=== PATIENT | male | born 1950 | race Caucasian/White ===

== ENCOUNTER 2017-09-19 10:04 | Day surgery (SDC) | payer MEDICARE, OTHER ==
[2017-09-19 11:16] LABS: ADD MAN DIFF? NO
[2017-09-19 11:22] LABS: BASOPHIL # 0.1 10^3/ul (0.0-0.1); BASOPHILS % 0.8 % (0.0-2.0); EOSINOPHILS # 0.2 10^3/ul (0.0-0.5); EOSINOPHILS % 2.9 % (0.0-7.0); HEMATOCRIT 42.1 % (42.0-52.0); HEMOGLOBIN 14.1 g/dl (14.0-18.0); LYMPHOCYTES # 2.2 10^3/ul (0.8-2.9); LYMPHOCYTES % 35.8 % (15.0-51.0); MEAN CORPUSCULAR HEMOGLOBIN 29.4 pg (29.0-33.0); MEAN CORPUSCULAR HGB CONC 33.5 g/dl (32.0-37.0); MEAN CORPUSCULAR VOLUME 87.7 fl (82.0-101.0); MEAN PLATELET VOLUME 10.8 fl (7.4-10.4); MONOCYTE # 0.4 10^3/ul (0.3-0.9); MONOCYTES % 5.8 % (0.0-11.0); NEUTROPHIL # 3.4 10^3/ul (1.6-7.5); NEUTROPHILS % 54.5 % (39.0-77.0); PLATELET COUNT 226 10^3/UL (140-415); RED CELL DISTRIBUTION WIDTH 13.3 % (11.5-14.5)
[2017-09-19 11:22] LABS: WHITE BLOOD COUNT 6.3 10^3/ul (4.8-10.8)
[2017-09-19 11:38] LABS: ANION GAP 12 (8-16); CARBON DIOXIDE 25 mmol/L (21-31); CHLORIDE 113 mmol/L (97-110); GLUCOSE 99 mg/dl (70-220)
[2017-09-19 11:45] LABS: INR 3.17; PT RATIO 2.6
[2017-09-19 11:50] LABS: BLOOD UREA NITROGEN 17 mg/dl (7-20); CALCIUM 8.9 mg/dl (8.4-10.2); CREATININE 0.91 mg/dl (0.61-1.24); POTASSIUM 4.2 mmol/L (3.5-5.1); SODIUM 146 mmol/L (135-144)
[2017-09-19 12:00] LABS: PARTIAL THROMBOPLASTIN TIME 49.7 Sec (25.0-35.0); PROTIME 33.5 Sec (11.9-14.9)
[2017-09-19] MEDS ORDERED: AMIODARONE 150MG/D5W BOLUS 100 ML IV (13:00)
== END 2017-09-19 15:20 | disposition home or self-care (01) ==
LOC: CCL 10:04
DX: I48.91 Unspecified atrial fibrillation (principal); E78.5 Hyperlipidemia, unspecified; I25.10 Atherosclerotic heart disease of native coronary artery without angina pectoris; E66.01 Morbid (severe) obesity due to excess calories; Z68.37 Body mass index [BMI] 37.0-37.9, adult
CPT/HCPCS: 71045; 80048; 85025; 85610; 85730; 92960; 93005; 93312

== ENCOUNTER 2018-01-13 11:13 | Inpatient (IN) | payer MEDICARE ==
[2018-01-13] MEDS: DILTIAZEM 25 MG INJ IV (11:40)
[2018-01-13 11:47] LABS: ADD MAN DIFF? NO
[2018-01-13 11:50] LABS: BASOPHIL # 0.1 10^3/ul (0.0-0.1); BASOPHILS % 0.7 % (0.0-2.0); EOSINOPHILS # 0.3 10^3/ul (0.0-0.5); EOSINOPHILS % 3.6 % (0.0-7.0); HEMATOCRIT 43.8 % (42.0-52.0); HEMOGLOBIN 14.5 g/dl (14.0-18.0); LYMPHOCYTES % 37.5 % (15.0-51.0); MEAN CORPUSCULAR HEMOGLOBIN 29.1 pg (29.0-33.0); MEAN CORPUSCULAR HGB CONC 33.1 g/dl (32.0-37.0); MEAN PLATELET VOLUME 11.1 fl (7.4-10.4); MONOCYTE # 0.3 10^3/ul (0.3-0.9); MONOCYTES % 4.2 % (0.0-11.0); NEUTROPHIL # 4.3 10^3/ul (1.6-7.5); NEUTROPHILS % 53.6 % (39.0-77.0); PLATELET COUNT 241 10^3/UL (140-415); RED BLOOD COUNT 4.98 10^6/ul (4.70-6.10); RED CELL DISTRIBUTION WIDTH 13.3 % (11.5-14.5)
[2018-01-13 12:00] LABS: INR 3.17; PARTIAL THROMBOPLASTIN TIME 46.1 Sec (25.0-35.0); PROTIME 33.5 Sec (11.9-14.9); PT RATIO 2.6
[2018-01-13 12:38] LABS: ANION GAP 14 (8-16); BLOOD UREA NITROGEN 20 mg/dl (7-20); CARBON DIOXIDE 20 mmol/L (21-31); CHLORIDE 112 mmol/L (97-110); CREATININE 1.01 mg/dl (0.61-1.24); GLUCOSE 130 mg/dl (70-220); MAGNESIUM 2.1 mg/dl (1.7-2.5); POTASSIUM 4.1 mmol/L (3.5-5.1); SODIUM 142 mmol/L (135-144)
[2018-01-13 12:50] LABS: B-TYPE NATRIURETIC PEPTIDE 741 PG/ML (0-125); TROPONIN-I < 0.012 ng/ml (0.000-0.120)
[2018-01-13] MEDS ORDERED: SOD CHLORIDE 0.9% 1,000 ML IV (13:33)
[2018-01-13] MEDS ORDERED: MAGNESIUM HYDROXIDE 30ML CUP PO (14:00)
[2018-01-13] MEDS ORDERED: NACL 0.9% 3 ML SYG IV (14:00)
[2018-01-13] MEDS ORDERED: ACETAMINOPHEN 325 MG TAB PO (14:00)
[2018-01-13] MEDS ORDERED: NITROGLYCERIN (SL) 0.4 MG TAB SL (14:00)
[2018-01-13] MEDS ORDERED: BISACODYL (EC) 5 MG TAB PO (14:00)
[2018-01-13] MEDS ORDERED: DOCUSATE SODIUM 100 MG CAP PO (14:00)
[2018-01-13] MEDS ORDERED: LABETALOL HCL 20MG INJ IV (14:00)
[2018-01-13] MEDS ORDERED: HYDROCODONE/APAP (5/325) TAB PO (14:00)
[2018-01-13] MEDS: SOD CHLORIDE 0.9% 500 ML IV (14:23)
[2018-01-13] MEDS: DIGOXIN 500 MCG INJ IV (14:28)
[2018-01-13] MEDS ORDERED: DILTIAZEM 25 MG INJ IV (14:30)
[2018-01-13] MEDS: AMIODARONE 150MG/D5W BOLUS 100 ML IV (14:33)
[2018-01-13] MEDS: AMIODARONE 900 MG in DEXTROSE 5% 482 ML IV ×2 (14:56→21:02)
[2018-01-13] MEDS: SOD CHLORIDE 0.9% 1,000 ML IV (14:57)
[2018-01-13 19:25] LABS: TROPONIN-I < 0.012 ng/ml (0.000-0.120)
[2018-01-13] MEDS: ATORVASTATIN 20 MG TAB PO (21:03)
[2018-01-13] MEDS: DILTIAZEM 30 MG TAB PO (21:11)
[2018-01-13] MEDS: ALPRAZOLAM 0.5 MG TAB PO (22:15)
[2018-01-14 01:26] LABS: TROPONIN-I < 0.012 ng/ml (0.000-0.120)
[2018-01-14] MEDS: DILTIAZEM 30 MG TAB PO ×3 (06:00→21:02)
[2018-01-14] MEDS: AMIODARONE 900 MG in DEXTROSE 5% 482 ML IV (06:19)
[2018-01-14 06:46] LABS: ADD MAN DIFF? NO
[2018-01-14 06:53] LABS: WHITE BLOOD COUNT 7.5 10^3/ul (4.8-10.8)
[2018-01-14 06:54] LABS: BASOPHILS % 0.5 % (0.0-2.0); EOSINOPHILS # 0.3 10^3/ul (0.0-0.5); EOSINOPHILS % 4.1 % (0.0-7.0); HEMATOCRIT 42.4 % (42.0-52.0); HEMOGLOBIN 13.7 g/dl (14.0-18.0); LYMPHOCYTES # 3.1 10^3/ul (0.8-2.9); LYMPHOCYTES % 40.6 % (15.0-51.0); MEAN CORPUSCULAR HEMOGLOBIN 28.6 pg (29.0-33.0); MEAN CORPUSCULAR HGB CONC 32.3 g/dl (32.0-37.0); MEAN CORPUSCULAR VOLUME 88.5 fl (82.0-101.0); MONOCYTE # 0.5 10^3/ul (0.3-0.9); MONOCYTES % 6.1 % (0.0-11.0); NEUTROPHIL # 3.6 10^3/ul (1.6-7.5); NEUTROPHILS % 48.4 % (39.0-77.0); PLATELET COUNT 224 10^3/UL (140-415); RED BLOOD COUNT 4.79 10^6/ul (4.70-6.10); RED CELL DISTRIBUTION WIDTH 13.6 % (11.5-14.5)
[2018-01-14 07:37] LABS: INR 2.95; PROTIME 31.6 Sec (11.9-14.9); PT RATIO 2.5
[2018-01-14 07:47] LABS: ALANINE AMINOTRANSFERASE 24 IU/L (13-69); ALBUMIN 3.4 g/dl (3.3-4.9); ALKALINE PHOSPHATASE 99 IU/L (42-121); ANION GAP 12 (8-16); ASPARTATE AMINO TRANSFERASE 29 IU/L (15-46); BILIRUBIN,INDIRECT 0.5 mg/dl (0-1.1); BILIRUBIN,TOTAL 0.5 mg/dl (0.2-1.3); BLOOD UREA NITROGEN 16 mg/dl (7-20); CALCIUM 8.9 mg/dl (8.4-10.2); CARBON DIOXIDE 27 mmol/L (21-31); CHLORIDE 106 mmol/L (97-110); CHOL/HDL RATIO 4.3 RATIO; CHOLESTEROL 144 mg/dl (100-200); CREATININE 0.94 mg/dl (0.61-1.24); GLUCOSE 98 mg/dl (70-220); HDL CHOLESTEROL 33 mg/dl (30-78); LDL CHOLESTEROL,CALCULATED 81 mg/dl; MAGNESIUM 1.9 mg/dl (1.7-2.5); POTASSIUM 4.4 mmol/L (3.5-5.1); SODIUM 141 mmol/L (135-144); TRIGLYCERIDES 149 mg/dl (0-149)
[2018-01-14] MEDS: ASPIRIN (EC) 81 MG TAB PO (08:43)
[2018-01-14] MEDS: PAROXETINE 20 MG TAB PO (08:43)
[2018-01-14] MEDS ORDERED: WARFARIN 5 MG TAB PO (09:00)
[2018-01-14 09:29] LABS: HEMOGLOBIN A1C 5.6 % (0-5.9)
[2018-01-14] MEDS ORDERED: LIDOCAINE 2% (SDV) 5 ML INJ (12:31)
[2018-01-14] MEDS ORDERED: PROPOFOL 40 ML (12:32)
[2018-01-14] MEDS: WARFARIN 5 MG TAB PO (17:24)
[2018-01-14] MEDS: ATORVASTATIN 20 MG TAB PO (21:02)
[2018-01-14] MEDS: ALPRAZOLAM 0.5 MG TAB PO (21:03)
[2018-01-15] MEDS: DILTIAZEM 30 MG TAB PO (06:00)
[2018-01-15 07:18] LABS: PROTIME 27.7 Sec (11.9-14.9); PT RATIO 2.2
[2018-01-15] MEDS: ASPIRIN (EC) 81 MG TAB PO (08:13)
[2018-01-15] MEDS: ALPRAZOLAM 0.5 MG TAB PO (08:13)
[2018-01-15] MEDS: PAROXETINE 20 MG TAB PO (08:13)
== END 2018-01-15 13:00 | disposition home or self-care (01) | DRG 310 ==
LOC: E/R 11:13 → TEL 13:35
PROC: 5A2204Z Restoration of Cardiac Rhythm, Single (ICD-10-PCS; principal; 2018-01-14 12:15)
DX: I48.91 Unspecified atrial fibrillation (principal); E78.5 Hyperlipidemia, unspecified; I42.9 Cardiomyopathy, unspecified; F32.9 Major depressive disorder, single episode, unspecified; F41.9 Anxiety disorder, unspecified; Z87.891 Personal history of nicotine dependence; Z79.01 Long term (current) use of anticoagulants; I25.10 Atherosclerotic heart disease of native coronary artery without angina pectoris; Z95.5 Presence of coronary angioplasty implant and graft; Z95.810 Presence of automatic (implantable) cardiac defibrillator; I95.9 Hypotension, unspecified; R79.1 Abnormal coagulation profile; I25.2 Old myocardial infarction
CPT/HCPCS: 36415; 71045; 80048; 80053; 80061; 83036; 83735; 83880; 84443; 84484; 85025; 85610; 85730; 93005; 93306; 93312; 93320; 93325; 96374; 99285-25; G0378

== ENCOUNTER 2018-06-13 12:11 | Inpatient (IN) | payer MEDICARE ==
[2018-06-13 13:29] LABS: ADD MAN DIFF? NO
[2018-06-13] MEDS: SOD CHLORIDE 0.9% 1,000 ML IV (13:30)
[2018-06-13 13:34] LABS: WHITE BLOOD COUNT 8.2 10^3/ul (4.8-10.8)
[2018-06-13 13:34] LABS: BASOPHIL # 0.1 10^3/ul (0.0-0.1); BASOPHILS % 0.7 % (0.0-2.0); EOSINOPHILS # 0.2 10^3/ul (0.0-0.5); EOSINOPHILS % 2.8 % (0.0-7.0); HEMATOCRIT 38.4 % (42.0-52.0); HEMOGLOBIN 12.5 g/dl (14.0-18.0); LYMPHOCYTES # 2.3 10^3/ul (0.8-2.9); LYMPHOCYTES % 28.6 % (15.0-51.0); MEAN CORPUSCULAR HGB CONC 32.6 g/dl (32.0-37.0); MEAN CORPUSCULAR VOLUME 89.1 fl (82.0-101.0); MEAN PLATELET VOLUME 11.2 fl (7.4-10.4); MONOCYTE # 0.5 10^3/ul (0.3-0.9); MONOCYTES % 5.5 % (0.0-11.0); NEUTROPHIL # 5.1 10^3/ul (1.6-7.5); PLATELET COUNT 240 10^3/UL (140-415); RED BLOOD COUNT 4.31 10^6/ul (4.70-6.10); RED CELL DISTRIBUTION WIDTH 13.8 % (11.5-14.5)
[2018-06-13 13:44] LABS: ADD UMIC YES; UR CLARITY BLOODY (CLEAR); UR COLOR BROWN (YELLOW); UR TOTAL PROTEIN (Dip) 4+ mg/dl (NEGATIVE); URINE SPECIFIC GRAVITY (Dip) >1.030 (1.003-1.030)
[2018-06-13 13:45] LABS: UR BILIRUBIN (Dip) 3+ mg/dL (NEGATIVE); UR BLOOD (Dip) 3+ mg/dL (NEGATIVE); UR GLUCOSE (Dip) NEGATIVE (NEGATIVE); UR KETONES (Dip) LARGE (3+) mg/dL (NEGATIVE); UR NITRITE (Dip) POSITIVE (NEGATIVE)
[2018-06-13 13:46] LABS: UR ASCORBIC ACID NEGATIVE (NEGATIVE); UR UROBILINOGEN (Dip) 2+ mg/dL (NEGATIVE)
[2018-06-13 13:50] LABS: UR LEUKOCYTE ESTERASE (Dip) 1+ Leu/ul (NEGATIVE); URINE RBCS >200 /HPF (0)
[2018-06-13 13:51] LABS: UR BACTERIA MODERATE /HPF (NONE SEEN); UR SQUAMOUS EPITHELIAL CELL RARE /HPF (FEW)
[2018-06-13 13:52] LABS: ALANINE AMINOTRANSFERASE 22 IU/L (13-69); ALBUMIN 4.1 g/dl (3.3-4.9); ALBUMIN/GLOBULIN RATIO 1.32; ALKALINE PHOSPHATASE 105 IU/L (42-121); ANION GAP 4 (5-13); ASPARTATE AMINO TRANSFERASE 21 IU/L (15-46); BILIRUBIN,INDIRECT 0.3 mg/dl (0-1.1); BILIRUBIN,TOTAL 0.3 mg/dl (0.2-1.3); BLOOD UREA NITROGEN 21 mg/dl (7-20); CALCIUM 9.2 mg/dl (8.4-10.2); CARBON DIOXIDE 27 mmol/L (21-31); CHLORIDE 112 mmol/L (97-110); CREATININE 0.94 mg/dl (0.61-1.24); Estimated GFR > 60 mL/min (>60); GLUCOSE 111 mg/dl (70-220); POTASSIUM 4.2 mmol/L (3.5-5.1); SODIUM 143 mmol/L (135-144); TOTAL PROTEIN 7.2 g/dl (6.1-8.1)
[2018-06-13 14:22] LABS: PROSTATE SPECIFIC ANTIGEN 0.9 ng/ml (0.0-4.0)
[2018-06-13] MEDS ORDERED: ONDANSETRON 4 MG INJ IV (17:30)
[2018-06-13] MEDS ORDERED: ACETAMINOPHEN 325 MG TAB PO (17:30)
[2018-06-13] MEDS ORDERED: ALPRAZOLAM 0.5 MG TAB PO (18:30)
[2018-06-13] MEDS: NACL 0.9% 3 ML SYG IV (20:00)
[2018-06-13 20:04] LABS: INR 1.86; PROTIME 21.5 Sec (11.9-14.9); PT RATIO 1.7
[2018-06-13] MEDS: ATORVASTATIN 20 MG TAB PO (20:57)
[2018-06-13] MEDS: PAROXETINE 20 MG TAB PO (20:58)
[2018-06-13] MEDS: ALPRAZOLAM 0.25 MG TAB PO (21:06)
[2018-06-13] MEDS: HYDROCODONE/APAP (5/325) TAB PO (22:09)
[2018-06-14 06:26] LABS: ADD MAN DIFF? NO
[2018-06-14 06:32] LABS: BASOPHIL # 0.1 10^3/ul (0.0-0.1); BASOPHILS % 0.6 % (0.0-2.0); EOSINOPHILS # 0.2 10^3/ul (0.0-0.5); EOSINOPHILS % 2.7 % (0.0-7.0); HEMATOCRIT 33.3 % (42.0-52.0); HEMOGLOBIN 10.8 g/dl (14.0-18.0); LYMPHOCYTES # 2.5 10^3/ul (0.8-2.9); LYMPHOCYTES % 32.6 % (15.0-51.0); MEAN CORPUSCULAR HEMOGLOBIN 29.6 pg (29.0-33.0); MEAN CORPUSCULAR HGB CONC 32.4 g/dl (32.0-37.0); MEAN CORPUSCULAR VOLUME 91.2 fl (82.0-101.0); MEAN PLATELET VOLUME 11.3 fl (7.4-10.4); MONOCYTE # 0.5 10^3/ul (0.3-0.9); MONOCYTES % 6.7 % (0.0-11.0); NEUTROPHIL # 4.4 10^3/ul (1.6-7.5); NEUTROPHILS % 57.1 % (39.0-77.0); PLATELET COUNT 163 10^3/UL (140-415); RED BLOOD COUNT 3.65 10^6/ul (4.70-6.10); RED CELL DISTRIBUTION WIDTH 13.3 % (11.5-14.5)
[2018-06-14 06:32] LABS: WHITE BLOOD COUNT 7.8 10^3/ul (4.8-10.8)
[2018-06-14 06:50] LABS: ALANINE AMINOTRANSFERASE 23 IU/L (13-69); ALBUMIN 3.5 g/dl (3.3-4.9); ALBUMIN/GLOBULIN RATIO 1.25; ALKALINE PHOSPHATASE 80 IU/L (42-121); ANION GAP 1 (5-13); ASPARTATE AMINO TRANSFERASE 23 IU/L (15-46); BILIRUBIN,INDIRECT 0.5 mg/dl (0-1.1); BILIRUBIN,TOTAL 0.5 mg/dl (0.2-1.3); BLOOD UREA NITROGEN 20 mg/dl (7-20); CALCIUM 8.6 mg/dl (8.4-10.2); CARBON DIOXIDE 28 mmol/L (21-31); CHLORIDE 112 mmol/L (97-110); CREATININE 0.95 mg/dl (0.61-1.24); Estimated GFR > 60 mL/min (>60); GLUCOSE 86 mg/dl (70-220); SODIUM 141 mmol/L (135-144); TOTAL PROTEIN 6.3 g/dl (6.1-8.1)
[2018-06-14 06:50] LABS: HEMOGLOBIN A1C 5.4 % (0-5.9)
[2018-06-14] MEDS: ALPRAZOLAM 0.25 MG TAB PO ×2 (08:58→20:17)
[2018-06-14] MEDS: PAROXETINE 20 MG TAB PO (08:58)
[2018-06-14 12:57] LABS: PROSTATE SPECIFIC ANTIGEN 1.2 ng/ml (0.0-4.0)
[2018-06-14] MEDS ORDERED: AL HYDROX/MG HYDROX/SIMETH 30 ML CUP PO ×2 (16:30)
[2018-06-14 18:54] LABS: TROPONIN-I < 0.012 ng/ml (0.000-0.120)
[2018-06-14] MEDS: ATORVASTATIN 20 MG TAB PO (20:17)
[2018-06-15 01:22] LABS: TROPONIN-I < 0.012 ng/ml (0.000-0.120)
[2018-06-15] MEDS: HYDROCODONE/APAP (5/325) TAB PO (05:40)
[2018-06-15 06:34] LABS: INR 1.39; PROTIME 17.2 Sec (11.9-14.9); PT RATIO 1.3
[2018-06-15 06:35] LABS: PARTIAL THROMBOPLASTIN TIME 34.9 Sec (23.0-35.0)
[2018-06-15 06:38] LABS: CHOLESTEROL 145 mg/dl (100-200)
[2018-06-15 06:38] LABS: CHOL/HDL RATIO 3.9 RATIO; LDL CHOLESTEROL,CALCULATED 91 mg/dl; TRIGLYCERIDES 85 mg/dl (0-149)
[2018-06-15 07:03] LABS: TROPONIN-I < 0.012 ng/ml (0.000-0.120)
[2018-06-15 07:12] LABS: HDL CHOLESTEROL 37 mg/dl (31-75)
[2018-06-15] MEDS: PAROXETINE 20 MG TAB PO (08:15)
[2018-06-15] MEDS: ATORVASTATIN 20 MG TAB PO (20:30)
[2018-06-15] MEDS: ALPRAZOLAM 0.25 MG TAB PO (20:30)
[2018-06-16] MEDS ORDERED: CEFAZOLIN 1 GM INJ (07:00)
[2018-06-16 07:05] LABS: PROTIME 15.3 Sec (11.9-14.9); PT RATIO 1.2
[2018-06-16 07:06] LABS: PARTIAL THROMBOPLASTIN TIME 30.4 Sec (23.0-35.0)
[2018-06-16] MEDS: PAROXETINE 20 MG TAB PO (08:08)
[2018-06-16] MEDS ORDERED: ONDANSETRON 4 MG INJ (17:40)
[2018-06-16] MEDS ORDERED: PROPOFOL 20 ML (17:40)
[2018-06-16] MEDS ORDERED: MIDAZOLAM 1 MG/ML 2 ML INJ (17:40)
[2018-06-16] MEDS ORDERED: METOCLOPRAMIDE 10 MG INJ (17:40)
[2018-06-16] MEDS ORDERED: ROCURONIUM 50 MG INJ (17:40)
[2018-06-16] MEDS ORDERED: FENTAnyl 50 MCG/ML VIAL (17:57)
[2018-06-16] MEDS ORDERED: MEPERIDINE 25 MG INJ IV (18:00)
[2018-06-16] MEDS ORDERED: DIPHENHYDRAMINE 50 MG INJ IV (18:00)
[2018-06-16] MEDS ORDERED: hydrALAzine 20 MG INJ IV (18:00)
[2018-06-16] MEDS ORDERED: ONDANSETRON 4 MG INJ IV (18:00)
[2018-06-16] MEDS ORDERED: HYDROmorphONE 1 MG/5 ML IV SYRINGE IV (18:00)
[2018-06-16] MEDS ORDERED: EPHEDrine 25 MG/5 ML SYG (18:10)
[2018-06-16] MEDS ORDERED: hydrALAzine 20 MG INJ (18:50)
[2018-06-16] MEDS ORDERED: ALBUTEROL 0.083% (NEB) 2.5 MG/3 ML AMP (19:06)
[2018-06-16] MEDS: IOHEXOL 300MG/ML 30 ML BTL (19:07)
[2018-06-16] MEDS: HYDROmorphONE 1 MG/5 ML IV SYRINGE IV ×2 (19:12→19:17)
[2018-06-16] MEDS: ALBUTEROL 0.083% (NEB) 2.5 MG/3 ML AMP HHN (19:25)
[2018-06-16] MEDS: ATORVASTATIN 20 MG TAB PO (20:58)
[2018-06-16] MEDS: ALPRAZOLAM 0.25 MG TAB PO (22:46)
[2018-06-17] MEDS: PAROXETINE 20 MG TAB PO (08:41)
[2018-06-17] MEDS: SOD CHLORIDE 0.9% 100 ML (09:38)
[2018-06-17] MEDS: IOHEXOL 300MG/ML 150 ML BTL (09:38)
[2018-06-17] MEDS: ALPRAZOLAM 0.25 MG TAB PO (20:37)
[2018-06-17] MEDS: ATORVASTATIN 20 MG TAB PO (20:37)
[2018-06-18] MEDS: PAROXETINE 20 MG TAB PO (08:37)
[2018-06-18] MEDS: ALPRAZOLAM 0.25 MG TAB PO (08:37)
[2018-06-18 12:43] LABS: ADD MAN DIFF? NO
[2018-06-18 13:00] LABS: WHITE BLOOD COUNT 7.2 10^3/ul (4.8-10.8)
[2018-06-18 13:00] LABS: BASOPHIL # 0.1 10^3/ul (0.0-0.1); BASOPHILS % 0.8 % (0.0-2.0); EOSINOPHILS # 0.3 10^3/ul (0.0-0.5); EOSINOPHILS % 3.8 % (0.0-7.0); HEMATOCRIT 32.6 % (42.0-52.0); HEMOGLOBIN 10.7 g/dl (14.0-18.0); LYMPHOCYTES # 2.1 10^3/ul (0.8-2.9); LYMPHOCYTES % 28.8 % (15.0-51.0); MEAN CORPUSCULAR HEMOGLOBIN 29.6 pg (29.0-33.0); MEAN CORPUSCULAR HGB CONC 32.8 g/dl (32.0-37.0); MEAN CORPUSCULAR VOLUME 90.1 fl (82.0-101.0); MEAN PLATELET VOLUME 10.5 fl (7.4-10.4); MONOCYTE # 0.5 10^3/ul (0.3-0.9); MONOCYTES % 6.3 % (0.0-11.0); NEUTROPHIL # 4.3 10^3/ul (1.6-7.5); NEUTROPHILS % 59.9 % (39.0-77.0); PLATELET COUNT 239 10^3/UL (140-415); RED BLOOD COUNT 3.62 10^6/ul (4.70-6.10); RED CELL DISTRIBUTION WIDTH 13.3 % (11.5-14.5)
== END 2018-06-18 13:00 | disposition home or self-care (01) | DRG 687 ==
LOC: E/R 12:11 → 2NE 17:04
PROVIDERS: Internal Medicine
PROC: 0TCB8ZZ Extirpation of Matter from Bladder, Via Natural or Artificial Opening Endoscopic (ICD-10-PCS; principal; 2018-06-16 17:42)
PROC: BT14YZZ Fluoroscopy of Kidneys, Ureters and Bladder using Other Contrast (ICD-10-PCS; 2018-06-16 17:42)
DX: C64.2 Malignant neoplasm of left kidney, except renal pelvis (principal); N13.30 Unspecified hydronephrosis; Z68.36 Body mass index [BMI] 36.0-36.9, adult; R31.0 Gross hematuria; Z85.51 Personal history of malignant neoplasm of bladder; F32.9 Major depressive disorder, single episode, unspecified; F41.9 Anxiety disorder, unspecified; F17.200 Nicotine dependence, unspecified, uncomplicated; I10 Essential (primary) hypertension; E78.5 Hyperlipidemia, unspecified; I25.10 Atherosclerotic heart disease of native coronary artery without angina pectoris; Z95.5 Presence of coronary angioplasty implant and graft; I48.0 Paroxysmal atrial fibrillation; E66.01 Morbid (severe) obesity due to excess calories
CPT/HCPCS: 71045; 74176; 74178; 74430; 80053; 80061; 81001; 83036; 84153; 84154; 84443; 84484; 85025; 85610; 85730; 87086; 88104; 93005; 93306; 94664; 96360; 99285-25

== ENCOUNTER 2018-09-26 11:05 | Inpatient (IN) | payer MEDICARE, MEDICAID ==
[2018-09-26] MEDS ORDERED: DILTIAZEM 25 MG INJ (11:35)
[2018-09-26] MEDS: DILTIAZEM 25 MG INJ IV ×4 (11:35→12:19)
[2018-09-26 11:41] LABS: ADD MAN DIFF? NO
[2018-09-26 11:43] LABS: WHITE BLOOD COUNT 7.5 10^3/ul (4.8-10.8)
[2018-09-26 11:43] LABS: BASOPHIL # 0.1 10^3/ul (0.0-0.1); BASOPHILS % 0.7 % (0.0-2.0); EOSINOPHILS # 0.3 10^3/ul (0.0-0.5); EOSINOPHILS % 3.6 % (0.0-7.0); HEMATOCRIT 43.9 % (42.0-52.0); HEMOGLOBIN 14.3 g/dl (14.0-18.0); LYMPHOCYTES # 2.8 10^3/ul (0.8-2.9); LYMPHOCYTES % 36.8 % (15.0-51.0); MEAN CORPUSCULAR HEMOGLOBIN 28.1 pg (29.0-33.0); MEAN CORPUSCULAR HGB CONC 32.6 g/dl (32.0-37.0); MEAN CORPUSCULAR VOLUME 86.2 fl (82.0-101.0); MEAN PLATELET VOLUME 10.6 fl (7.4-10.4); MONOCYTE # 0.4 10^3/ul (0.3-0.9); MONOCYTES % 4.7 % (0.0-11.0); NEUTROPHILS % 53.9 % (39.0-77.0); PLATELET COUNT 270 10^3/UL (140-415); RED BLOOD COUNT 5.09 10^6/ul (4.70-6.10); RED CELL DISTRIBUTION WIDTH 13.6 % (11.5-14.5)
[2018-09-26] MEDS: DILTIAZEM 30 MG TAB PO ×2 (11:55→23:17)
[2018-09-26 12:02] LABS: ALANINE AMINOTRANSFERASE 24 IU/L (13-69); ALBUMIN 3.9 g/dl (3.3-4.9); ALBUMIN/GLOBULIN RATIO 1.39; ALKALINE PHOSPHATASE 123 IU/L (42-121); ANION GAP 7 (5-13); ASPARTATE AMINO TRANSFERASE 22 IU/L (15-46); BILIRUBIN,INDIRECT 0.7 mg/dl (0-1.1); BILIRUBIN,TOTAL 0.7 mg/dl (0.2-1.3); BLOOD UREA NITROGEN 18 mg/dl (7-20); CALCIUM 8.9 mg/dl (8.4-10.2); CARBON DIOXIDE 24 mmol/L (21-31); CHLORIDE 110 mmol/L (97-110); CREATININE 1.08 mg/dl (0.61-1.24); Estimated GFR > 60 mL/min (>60); GLUCOSE 160 mg/dl (70-220); POTASSIUM 4.1 mmol/L (3.5-5.1); SODIUM 141 mmol/L (135-144); TOTAL PROTEIN 6.7 g/dl (6.1-8.1)
[2018-09-26 12:06] LABS: INR 1.55; PROTIME 18.7 Sec (11.9-14.9); PT RATIO 1.5
[2018-09-26 12:16] LABS: TROPONIN-I 0.178 ng/ml (0.000-0.120)
[2018-09-26] MEDS: SOD CHLORIDE 0.9% 500 ML IV (12:19)
[2018-09-26] MEDS: DIGOXIN 500 MCG INJ IV (12:20)
[2018-09-26] MEDS: ASPIRIN 325 MG TAB PO (12:29)
[2018-09-26] MEDS ORDERED: ACETAMINOPHEN 325 MG TAB PO ×2 (12:30→14:30)
[2018-09-26] MEDS ORDERED: ONDANSETRON 4 MG INJ IV ×2 (12:30→14:30)
[2018-09-26] MEDS ORDERED: DILTIAZEM 25 MG INJ IV (14:00)
[2018-09-26] MEDS ORDERED: NITROGLYCERIN (SL) 0.4 MG TAB SL (14:30)
[2018-09-26] MEDS ORDERED: NACL 0.9% 3 ML SYG IV (14:30)
[2018-09-26] MEDS ORDERED: morphine 2 MG INJ IV (14:30)
[2018-09-26 18:44] LABS: CREATINE KINASE 49 IU/L (23-200)
[2018-09-26 18:56] LABS: CK INDEX 3.6; CK-MB 1.76 ng/ml (0.0-2.4)
[2018-09-26 19:05] LABS: TROPONIN-I 0.171 ng/ml (0.000-0.120)
[2018-09-26] MEDS: PAROXETINE 20 MG TAB PO (23:17)
[2018-09-26] MEDS: WARFARIN 10 MG TAB PO (23:17)
[2018-09-26] MEDS: ATORVASTATIN 20 MG TAB PO (23:17)
[2018-09-26] MEDS: ENOXAPARIN 80 MG/0.8 ML SYG SC (23:22)
[2018-09-26] MEDS: ALPRAZOLAM 0.5 MG TAB PO (23:23)
[2018-09-26 23:57] LABS: CREATINE KINASE 51 IU/L (23-200)
[2018-09-27 00:07] LABS: CK INDEX 3.2; CK-MB 1.64 ng/ml (0.0-2.4)
[2018-09-27 00:08] LABS: TROPONIN-I 0.146 ng/ml (0.000-0.120)
[2018-09-27 05:33] LABS: ADD MAN DIFF? NO
[2018-09-27 05:35] LABS: BASOPHIL # 0.1 10^3/ul (0.0-0.1); BASOPHILS % 0.7 % (0.0-2.0); EOSINOPHILS # 0.3 10^3/ul (0.0-0.5); EOSINOPHILS % 4.3 % (0.0-7.0); HEMATOCRIT 42.7 % (42.0-52.0); HEMOGLOBIN 13.7 g/dl (14.0-18.0); LYMPHOCYTES # 3.1 10^3/ul (0.8-2.9); LYMPHOCYTES % 43.9 % (15.0-51.0); MEAN CORPUSCULAR HGB CONC 32.1 g/dl (32.0-37.0); MEAN CORPUSCULAR VOLUME 87.1 fl (82.0-101.0); MEAN PLATELET VOLUME 10.8 fl (7.4-10.4); MONOCYTE # 0.5 10^3/ul (0.3-0.9); MONOCYTES % 7.1 % (0.0-11.0); NEUTROPHIL # 3.1 10^3/ul (1.6-7.5); NEUTROPHILS % 43.7 % (39.0-77.0); PLATELET COUNT 218 10^3/UL (140-415); RED CELL DISTRIBUTION WIDTH 13.7 % (11.5-14.5)
[2018-09-27 05:53] LABS: HEMOGLOBIN A1C 5.4 % (0-5.9)
[2018-09-27 05:55] LABS: INR 1.56; PROTIME 18.8 Sec (11.9-14.9); PT RATIO 1.5
[2018-09-27] MEDS: DILTIAZEM 30 MG TAB PO ×4 (06:17→21:10)
[2018-09-27 06:40] LABS: ALANINE AMINOTRANSFERASE 24 IU/L (13-69); ALBUMIN 3.6 g/dl (3.3-4.9); ALBUMIN/GLOBULIN RATIO 1.38; ALKALINE PHOSPHATASE 111 IU/L (42-121); ANION GAP 5 (5-13); ASPARTATE AMINO TRANSFERASE 22 IU/L (15-46); BILIRUBIN,INDIRECT 0.7 mg/dl (0-1.1); BILIRUBIN,TOTAL 0.7 mg/dl (0.2-1.3); BLOOD UREA NITROGEN 19 mg/dl (7-20); CALCIUM 8.7 mg/dl (8.4-10.2); CARBON DIOXIDE 26 mmol/L (21-31); CHLORIDE 109 mmol/L (97-110); CHOL/HDL RATIO 5.1 RATIO; CHOLESTEROL 160 mg/dl (100-200); CREATININE 0.94 mg/dl (0.61-1.24); Estimated GFR > 60 mL/min (>60); GLUCOSE 101 mg/dl (70-220); HDL CHOLESTEROL 31 mg/dl (31-75); LDL CHOLESTEROL,CALCULATED 107 mg/dl; PHOSPHORUS 2.8 mg/dl (2.5-4.9); POTASSIUM 4.4 mmol/L (3.5-5.1); SODIUM 140 mmol/L (135-144); TOTAL PROTEIN 6.2 g/dl (6.1-8.1); TRIGLYCERIDES 112 mg/dl (0-149)
[2018-09-27] MEDS: ALPRAZOLAM 0.5 MG TAB PO ×2 (08:13→21:06)
[2018-09-27] MEDS: ASPIRIN (EC) 81 MG TAB PO (08:13)
[2018-09-27] MEDS: ENOXAPARIN 80 MG/0.8 ML SYG SC ×2 (08:13→20:58)
[2018-09-27 13:02] LABS: FREE T4 (FREE THYROXINE) 1.32 ng/dl (0.78-2.44)
[2018-09-27 13:03] LABS: FREE T3 3.79 pg/ml (2.77-5.27)
[2018-09-27] MEDS: DIGOXIN 500 MCG INJ IV ×2 (14:14→17:17)
[2018-09-27] MEDS: AMIODARONE 150MG/D5W BOLUS 100 ML IV (18:00)
[2018-09-27] MEDS: AMIODARONE 900 MG in DEXTROSE 5% 482 ML IV (18:13)
[2018-09-27] MEDS: ATORVASTATIN 20 MG TAB PO (20:56)
[2018-09-27] MEDS: PAROXETINE 20 MG TAB PO (20:56)
[2018-09-27] MEDS ORDERED: AMIODARONE 200 MG TAB PO (21:00)
[2018-09-27] MEDS: WARFARIN 5 MG TAB PO ×2 (21:05→21:11)
[2018-09-28] MEDS: DIGOXIN 500 MCG INJ IV ×2 (00:37→15:21)
[2018-09-28] MEDS: DILTIAZEM 30 MG TAB PO ×3 (06:00→20:39)
[2018-09-28 06:18] LABS: ADD MAN DIFF? NO
[2018-09-28 06:26] LABS: WHITE BLOOD COUNT 6.8 10^3/ul (4.8-10.8)
[2018-09-28 06:26] LABS: BASOPHIL # 0.1 10^3/ul (0.0-0.1); BASOPHILS % 0.9 % (0.0-2.0); EOSINOPHILS # 0.3 10^3/ul (0.0-0.5); EOSINOPHILS % 3.8 % (0.0-7.0); HEMOGLOBIN 14.1 g/dl (14.0-18.0); LYMPHOCYTES # 2.5 10^3/ul (0.8-2.9); MEAN CORPUSCULAR HEMOGLOBIN 28.4 pg (29.0-33.0); MEAN CORPUSCULAR HGB CONC 33.6 g/dl (32.0-37.0); MEAN CORPUSCULAR VOLUME 84.5 fl (82.0-101.0); MEAN PLATELET VOLUME 10.9 fl (7.4-10.4); MONOCYTE # 0.4 10^3/ul (0.3-0.9); MONOCYTES % 6.5 % (0.0-11.0); NEUTROPHIL # 3.5 10^3/ul (1.6-7.5); NEUTROPHILS % 51.7 % (39.0-77.0); PLATELET COUNT 192 10^3/UL (140-415); RED BLOOD COUNT 4.97 10^6/ul (4.70-6.10); RED CELL DISTRIBUTION WIDTH 13.3 % (11.5-14.5)
[2018-09-28 06:54] LABS: INR 1.79; PROTIME 20.9 Sec (11.9-14.9); PT RATIO 1.6
[2018-09-28 07:21] LABS: ANION GAP 7 (5-13); BLOOD UREA NITROGEN 16 mg/dl (7-20); CALCIUM 8.8 mg/dl (8.4-10.2); CARBON DIOXIDE 24 mmol/L (21-31); CHLORIDE 109 mmol/L (97-110); CREATININE 0.93 mg/dl (0.61-1.24); Estimated GFR > 60 mL/min (>60); GLUCOSE 95 mg/dl (70-220); SODIUM 140 mmol/L (135-144)
[2018-09-28] MEDS: ASPIRIN (EC) 81 MG TAB PO (08:35)
[2018-09-28] MEDS: ENOXAPARIN 80 MG/0.8 ML SYG SC ×2 (08:39→20:46)
[2018-09-28] MEDS: WARFARIN 5 MG TAB PO (16:50)
[2018-09-28] MEDS: ATORVASTATIN 20 MG TAB PO (20:38)
[2018-09-28] MEDS: AMIODARONE 200 MG TAB PO (20:38)
[2018-09-28] MEDS: PAROXETINE 20 MG TAB PO (20:42)
[2018-09-28] MEDS: ALPRAZOLAM 0.5 MG TAB PO (23:56)
[2018-09-29] MEDS: DILTIAZEM 30 MG TAB PO ×3 (06:21→21:37)
[2018-09-29 06:39] LABS: INR 1.86; PROTIME 21.5 Sec (11.9-14.9); PT RATIO 1.7
[2018-09-29] MEDS: AMIODARONE 200 MG TAB PO ×2 (08:56→21:36)
[2018-09-29] MEDS: ASPIRIN (EC) 81 MG TAB PO (08:57)
[2018-09-29] MEDS: ENOXAPARIN 80 MG/0.8 ML SYG SC ×2 (09:04→21:00)
[2018-09-29] MEDS: DIGOXIN 0.125 MG TAB PO (13:24)
[2018-09-29] MEDS: WARFARIN 7.5 MG TAB PO (15:34)
[2018-09-29] MEDS: PAROXETINE 20 MG TAB PO (21:36)
[2018-09-29] MEDS: ATORVASTATIN 20 MG TAB PO (21:36)
[2018-09-30 05:45] LABS: ADD MAN DIFF? NO
[2018-09-30] MEDS: DILTIAZEM 30 MG TAB PO ×3 (06:00→21:54)
[2018-09-30 06:01] LABS: BASOPHILS % 0.7 % (0.0-2.0); EOSINOPHILS # 0.2 10^3/ul (0.0-0.5); EOSINOPHILS % 3.3 % (0.0-7.0); HEMATOCRIT 40.8 % (42.0-52.0); HEMOGLOBIN 13.6 g/dl (14.0-18.0); LYMPHOCYTES # 2.6 10^3/ul (0.8-2.9); MEAN CORPUSCULAR HEMOGLOBIN 28.2 pg (29.0-33.0); MEAN CORPUSCULAR HGB CONC 33.3 g/dl (32.0-37.0); MEAN CORPUSCULAR VOLUME 84.5 fl (82.0-101.0); MEAN PLATELET VOLUME 10.6 fl (7.4-10.4); MONOCYTE # 0.5 10^3/ul (0.3-0.9); MONOCYTES % 8.3 % (0.0-11.0); NEUTROPHIL # 2.7 10^3/ul (1.6-7.5); NEUTROPHILS % 44.4 % (39.0-77.0); PLATELET COUNT 211 10^3/UL (140-415); RED BLOOD COUNT 4.83 10^6/ul (4.70-6.10); RED CELL DISTRIBUTION WIDTH 13.2 % (11.5-14.5)
[2018-09-30 06:01] LABS: WHITE BLOOD COUNT 6.1 10^3/ul (4.8-10.8)
[2018-09-30 06:15] LABS: PROTIME 22.8 Sec (11.9-14.9); PT RATIO 1.8
[2018-09-30 06:27] LABS: MAGNESIUM 2.1 mg/dl (1.7-2.5)
[2018-09-30 06:27] LABS: PHOSPHORUS 3.2 mg/dl (2.5-4.9)
[2018-09-30 06:34] LABS: ANION GAP 5 (5-13); BLOOD UREA NITROGEN 17 mg/dl (7-20); CARBON DIOXIDE 27 mmol/L (21-31); CHLORIDE 109 mmol/L (97-110); CREATININE 1.16 mg/dl (0.61-1.24); Estimated GFR > 60 mL/min (>60); GLUCOSE 104 mg/dl (70-220); POTASSIUM 4.4 mmol/L (3.5-5.1); SODIUM 141 mmol/L (135-144)
[2018-09-30] MEDS: ENOXAPARIN 80 MG/0.8 ML SYG SC ×2 (09:00→22:38)
[2018-09-30] MEDS: AMIODARONE 200 MG TAB PO ×2 (10:52→20:30)
[2018-09-30] MEDS: PROPOFOL 60 ML (12:37)
[2018-09-30] MEDS: LIDOCAINE 2% (SDV) 5 ML INJ (12:37)
[2018-09-30] MEDS ORDERED: ONDANSETRON 4 MG INJ IV (14:30)
[2018-09-30] MEDS ORDERED: DIPHENHYDRAMINE 50 MG INJ IV (14:30)
[2018-09-30] MEDS ORDERED: METOCLOPRAMIDE 10 MG INJ IV (14:30)
[2018-09-30] MEDS ORDERED: FENTAnyl 50 MCG/ML VIAL IV (14:30)
[2018-09-30] MEDS ORDERED: MEPERIDINE 25 MG INJ IV (14:30)
[2018-09-30] MEDS: DIGOXIN 0.125 MG TAB PO (16:22)
[2018-09-30] MEDS: ASPIRIN (EC) 81 MG TAB PO (16:22)
[2018-09-30] MEDS: ATORVASTATIN 20 MG TAB PO (20:30)
[2018-09-30] MEDS: PAROXETINE 20 MG TAB PO (20:30)
[2018-09-30] MEDS: ALPRAZOLAM 0.5 MG TAB PO (21:56)
[2018-10-01 05:33] LABS: ADD MAN DIFF? NO
[2018-10-01 05:42] LABS: BASOPHILS % 0.2 % (0.0-2.0); EOSINOPHILS # 0.1 10^3/ul (0.0-0.5); EOSINOPHILS % 0.8 % (0.0-7.0); HEMATOCRIT 39.4 % (42.0-52.0); LYMPHOCYTES # 2.2 10^3/ul (0.8-2.9); LYMPHOCYTES % 20.2 % (15.0-51.0); MEAN CORPUSCULAR HEMOGLOBIN 28.2 pg (29.0-33.0); MEAN CORPUSCULAR VOLUME 85.5 fl (82.0-101.0); MEAN PLATELET VOLUME 10.9 fl (7.4-10.4); MONOCYTE # 0.8 10^3/ul (0.3-0.9); MONOCYTES % 7.3 % (0.0-11.0); NEUTROPHIL # 7.7 10^3/ul (1.6-7.5); NEUTROPHILS % 71.2 % (39.0-77.0); PLATELET COUNT 202 10^3/UL (140-415); RED BLOOD COUNT 4.61 10^6/ul (4.70-6.10); RED CELL DISTRIBUTION WIDTH 13.5 % (11.5-14.5)
[2018-10-01 05:42] LABS: WHITE BLOOD COUNT 10.9 10^3/ul (4.8-10.8)
[2018-10-01] MEDS: DILTIAZEM 30 MG TAB PO ×2 (05:57→15:19)
[2018-10-01 06:23] LABS: ANION GAP 7 (5-13); BLOOD UREA NITROGEN 22 mg/dl (7-20); CALCIUM 8.9 mg/dl (8.4-10.2); CARBON DIOXIDE 26 mmol/L (21-31); CHLORIDE 109 mmol/L (97-110); Estimated GFR > 60 mL/min (>60); GLUCOSE 108 mg/dl (70-220); SODIUM 142 mmol/L (135-144)
[2018-10-01 06:57] LABS: MAGNESIUM 2.2 mg/dl (1.7-2.5)
[2018-10-01 06:57] LABS: PHOSPHORUS 3.2 mg/dl (2.5-4.9)
[2018-10-01] MEDS: ASPIRIN (EC) 81 MG TAB PO (08:24)
[2018-10-01] MEDS: AMIODARONE 200 MG TAB PO (09:00)
[2018-10-01] MEDS: DIGOXIN 0.125 MG TAB PO (13:44)
[2018-10-01 18:22] LABS: INR 1.85; PROTIME 21.4 Sec (11.9-14.9); PT RATIO 1.7
== END 2018-10-01 17:47 | disposition home or self-care (01) | DRG 282 ==
LOC: E/R 11:05 → 6WM 12:27
PROC: 5A2204Z Restoration of Cardiac Rhythm, Single (ICD-10-PCS; principal; 2018-09-30 11:52)
DX: I48.91 Unspecified atrial fibrillation (principal); I21.A1 Myocardial infarction type 2; E66.9 Obesity, unspecified; Z68.39 Body mass index [BMI] 39.0-39.9, adult; F32.9 Major depressive disorder, single episode, unspecified; Z95.0 Presence of cardiac pacemaker; Z91.14 Patient's other noncompliance with medication regimen; Z72.0 Tobacco use; I25.2 Old myocardial infarction
CPT/HCPCS: 36415; 71045; 80048; 80053; 80061; 82550; 82553; 83036; 83735; 84100; 84439; 84443; 84481; 84484; 85025; 85610; 85730; 92960; 93005; 93312; 93320; 96374; 99285-25